=== PATIENT | female | born 1995 | race Caucasian/White ===

== ENCOUNTER 2019-03-27 08:38 | Emergency (ER) | payer BC ==
[~2019-03-27] VITALS: Ht 157.5 cm; Wt 52.2 kg
--- NOTE | 2019-03-27 08:42 | NUR ---
PT BIB SELF C/O RLQ ABDOMINAL PAIN R/T R LOWER BACK, NAUSEA THAT STARTED THIS MORNING, PT IS AAOX4, NOT IN RESPIRATORY DISTRESS ,HOOKED TO MONITOR, KEPT RESTED AND COMFORTABLE, WILL CONTINUE TO MONITOR.
--- NOTE | 2019-03-27 08:52 | NUR ---
PT SEEN AND EXAMINED BY DR. CUEVAS
--- NOTE | 2019-03-27 08:55 | NUR ---
URINE SPECIMEN COLLECTED AND SENT TO LAB.
[2019-03-27] MEDS ORDERED: IV NS 0.9% 1,000 ML BAG IV ONE (09:00)
[2019-03-27] MEDS ORDERED: ONDANSETRON HCL/PF 4 MG/2 ML VIAL IVP ONE (09:00)
[2019-03-27] MEDS ORDERED: KETOROLAC TROMETHAMINE INJ 30 MG/ML VIAL IV ONE (09:00)
--- NOTE | 2019-03-27 09:00 | NUR ---
IV LINE ESTABLISHED, BLOOD DRAWNED AND SENT TO LAB.
[2019-03-27 09:05] LABS: BASOPHILS # (AUTO) 0.1 /CMM (0.0-0.2); EOSINOPHILS % (AUTO) 3.6 % (0.0-6.0); HEMATOCRIT 39 % (33-45); HEMOGLOBIN 13.3 g/dL (11.5-14.8); LYMPHOCYTES # (AUTO) 2.8 /CMM (0.8-4.8); LYMPHOCYTES % (AUTO) 32.2 % (20.0-44.0); MEAN CORPUSCULAR HGB CONC 34 g/dl (31.0-36.0); MEAN CORPUSCULAR VOLUME 98 fL (82-100); MONOCYTES # (AUTO) 0.6 /CMM (0.1-1.30); MONOCYTES % (AUTO) 6.6 % (2.0-12.0); NEUTROPHILS # (AUTO) 4.9 /CMM (1.8-8.9); NEUTROPHILS % (AUTO) 56.6 % (43.0-81.0); PLATELET COUNT (AUTO) 322 /CMM (150-450); RED BLOOD CELL COUNT(AUTO) 3.96 MIL/uL (4.0-5.2); WHITE BLOOD COUNT (AUTO) 8.6 K/uL (4.3-11.0)
--- NOTE | 2019-03-27 09:16 | NUR ---
TECH AT BEDSIDE FOR US.
[2019-03-27] MEDS ORDERED: KETOROLAC TROMETHAMINE 15 MG/ML VIAL ONE (09:22)
[2019-03-27] MEDS ORDERED: ONDANSETRON HCL/PF 4 MG/2 ML VIAL ONE (09:23)
[2019-03-27 09:32] LABS: CALCIUM, SERUM 8.8 mg/dL (8.5-10.1); CREATININE 0.8 mg/dL (0.6-1.3); POTASSIUM 3.7 mmol/L (3.5-5.1)
[2019-03-27 09:37] LABS: ALBUMIN 3.8 g/dL (3.4-5.0); BILIRUBIN,DIRECT 0.1 mg/dL (0.0-0.2); BILIRUBIN,TOTAL 0.3 mg/dL (0.2-1.0); TOTAL PROTEIN, SERUM 7.4 g/dL (6.4-8.2)
[2019-03-27 10:14] LABS: APPEARANCE,URINE Slightly Cloudy (CLEAR); BILIRUBIN,URINE SMALL (NEGATIVE); BLOOD, URINE Moderate Ery/uL (NEGATIVE); COLOR,URINE Yellow (YELLOW); KETONES,URINE Trace (NEGATIVE); LEUKOCYTE ESTERASE ,URINE Negative (NEGATIVE); NITRITE, URINE Negative (NEGATIVE); PROTEIN,URINE Trace mg/dl (NEGATIVE); UGLUCOSE Negative (NEGATIVE); UROBILINOGEN,URINE 0.2 EU/dL (0.2)
[2019-03-27 10:15] LABS: BACTERIA,URINE Few /HPF (None Seen); SQUAMOUS EPITHELIAL CELL,UR Few /HPF (None Seen)
--- NOTE | 2019-03-27 10:46 | NUR ---
IV removed. Catheter intact and site benign. Pressure and 4x4 applied to site. No bleeding noted. Patient discharged to home in stable condition. Written and verbal after care instructions given. Patient verbalizes understanding of instruction.
[2019-03-27 10:47] VITALS: BP 119/64
== END 2019-03-27 10:49 | disposition home or self-care (01) ==
LOC: ER 08:41
DX: N23 Unspecified renal colic (principal); Z87.442 Personal history of urinary calculi
CPT/HCPCS: 36415; 76700; 80048; 80076; 81001; 83690; 84703; 85025; 96374; 96375; 99284; J1885; J2405; J7030; 81000-TC

== ENCOUNTER 2019-05-04 12:08 | Emergency (ER) | payer BC ==
[~2019-05-04] VITALS: Ht 157.5 cm; Wt 44.9 kg
[2019-05-04 12:43] LABS: APPEARANCE,URINE Slightly Cloudy (CLEAR); BILIRUBIN,URINE Negative (NEGATIVE); BLOOD, URINE Small Ery/uL (NEGATIVE); COLOR,URINE Yellow (YELLOW); KETONES,URINE >=160 (NEGATIVE); LEUKOCYTE ESTERASE ,URINE Negative (NEGATIVE); NITRITE, URINE Negative (NEGATIVE); PH,URINE 5.5 (5.0-8.0); PROTEIN,URINE Negative (NEGATIVE); UGLUCOSE Negative (NEGATIVE); UROBILINOGEN,URINE 0.2 EU/dL (0.2)
[2019-05-04 12:52] LABS: BASOPHILS % (AUTO) 0.4 % (0.0-2.0); HEMATOCRIT 42 % (33-45); LYMPHOCYTES # (AUTO) 1.1 /CMM (0.8-4.8); LYMPHOCYTES % (AUTO) 9.8 % (20.0-44.0); MEAN CORPUSCULAR HGB CONC 33 g/dl (31.0-36.0); MEAN CORPUSCULAR VOLUME 100 fL (82-100); MONOCYTES # (AUTO) 0.3 /CMM (0.1-1.30); MONOCYTES % (AUTO) 3.2 % (2.0-12.0); NEUTROPHILS # (AUTO) 9.6 /CMM (1.8-8.9); NEUTROPHILS % (AUTO) 86.6 % (43.0-81.0); PLATELET COUNT (AUTO) 334 /CMM (150-450); WHITE BLOOD COUNT (AUTO) 11.1 K/uL (4.3-11.0)
[2019-05-04] MEDS ORDERED: IV NS 0.9% 1,000 ML BAG IV ONE ×2 (13:00→15:00)
[2019-05-04] MEDS ORDERED: KETOROLAC TROMETHAMINE INJ 30 MG/ML VIAL IV ONE (13:00)
[2019-05-04] MEDS ORDERED: ONDANSETRON HCL/PF 4 MG/2 ML VIAL IVP ONE (13:00)
[2019-05-04] MEDS ORDERED: KETOROLAC TROMETHAMINE 15 MG/ML VIAL ONE (13:07)
[2019-05-04] MEDS ORDERED: ONDANSETRON HCL/PF 4 MG/2 ML VIAL ONE (13:07)
[2019-05-04 13:53] LABS: CREATININE 0.8 mg/dL (0.6-1.3); POTASSIUM 4.7 mmol/L (3.5-5.1)
[2019-05-04 14:00] LABS: ALBUMIN 4.3 g/dL (3.4-5.0); BILIRUBIN,DIRECT 0.1 mg/dL (0.0-0.2); BILIRUBIN,TOTAL 0.4 mg/dL (0.2-1.0)
[2019-05-04 14:45] LABS: BACTERIA,URINE None seen /HPF (None Seen); WBC,URINE 0-2 /HPF (0-3)
[2019-05-04 14:46] LABS: MUCUS,URINE Many /LPF (None Seen); SQUAMOUS EPITHELIAL CELL,UR Many /HPF (None Seen)
[2019-05-04] MEDS ORDERED: ACETAMINOPHEN 325 MG TABLET PO ONE (15:00)
[2019-05-04] MEDS ORDERED: ACETAMINOPHEN ES 500 MG TABLET ONE (15:15)
[2019-05-04 16:02] VITALS: BP 121/67
--- NOTE | 2019-05-04 16:02 | NUR ---
Patient discharged to home in stable condition. Written and verbal after care instructions given. Patient verbalizes understanding of instruction.
== END 2019-05-04 16:03 | disposition home or self-care (01) ==
LOC: ER 12:08
DX: N23 Unspecified renal colic (principal); R11.2 Nausea with vomiting, unspecified
CPT/HCPCS: 36415; 80048; 80076; 81001; 83690; 84703; 85025; 87086; 96361; 96374; 96375; 99283; J1885; J2405; J7030 ×2; 81000-TC

== ENCOUNTER 2019-07-30 22:43 | Emergency (ER) | payer BC ==
[~2019-07-30] VITALS: Ht 157.5 cm; Wt 45.4 kg
[2019-07-30 22:45] VITALS: BP 115/62
--- NOTE | 2019-07-30 22:45 | NUR ---
PT BIBFRIEND C/O "ALCOHOL POISONING, SHE CANT HOLD ANYTHING DOWN". PT AAOX4, VSS. NAD NOTED. RESP EVEN AND UNLABORED. PT DENIES PAIN AT THIS TIME. PT ON MONITOR IN BED 10 WITH FRIEND AT BESIDE. WILL CONTINUE TO MONITOR.
--- NOTE | 2019-07-30 22:59 | NUR ---
BLOOD DRAWN AND GIVEN TO PHLEB
[2019-07-30] MEDS ORDERED: IV NS 0.9% 1,000 ML BAG IV ONE (23:00)
[2019-07-30] MEDS ORDERED: ONDANSETRON HCL/PF 4 MG/2 ML VIAL IVP ONE (23:00)
[2019-07-30] MEDS ORDERED: ONDANSETRON HCL/PF 4 MG/2 ML VIAL ONE (23:04)
[2019-07-30 23:07] LABS: BASOPHILS % (AUTO) 0.3 % (0.0-2.0); HEMATOCRIT 44 % (33-45); HEMOGLOBIN 14.5 g/dL (11.5-14.8); LYMPHOCYTES # (AUTO) 1.1 /CMM (0.8-4.8); LYMPHOCYTES % (AUTO) 6.8 % (20.0-44.0); MEAN CORPUSCULAR HGB CONC 33 g/dl (31.0-36.0); MEAN CORPUSCULAR VOLUME 101 fL (82-100); MONOCYTES # (AUTO) 0.5 /CMM (0.1-1.30); MONOCYTES % (AUTO) 3.3 % (2.0-12.0); NEUTROPHILS # (AUTO) 14.4 /CMM (1.8-8.9); NEUTROPHILS % (AUTO) 89.6 % (43.0-81.0); PLATELET COUNT (AUTO) 370 /CMM (150-450); RED BLOOD CELL COUNT(AUTO) 4.35 MIL/uL (4.0-5.2); WHITE BLOOD COUNT (AUTO) 16.1 K/uL (4.3-11.0)
[2019-07-30 23:28] LABS: BILIRUBIN,DIRECT 0.1 mg/dL (0.0-0.2); BILIRUBIN,TOTAL 0.4 mg/dL (0.2-1.0); CALCIUM, SERUM 9.3 mg/dL (8.5-10.1); CREATININE 0.9 mg/dL (0.6-1.3); POTASSIUM 4.4 mmol/L (3.5-5.1); SALICYLATE 2.4 mg/dL (2.8-20.0); TOTAL PROTEIN, SERUM 8.9 g/dL (6.4-8.2)
--- NOTE | 2019-07-30 23:59 | NUR ---
URINE COLLECTED AND SENT TO LAB
[2019-07-31 00:09] LABS: APPEARANCE,URINE Clear (CLEAR); BILIRUBIN,URINE Negative (NEGATIVE); BLOOD, URINE Trace-lysed Ery/uL (NEGATIVE); COLOR,URINE Yellow (YELLOW); KETONES,URINE 80 (NEGATIVE); LEUKOCYTE ESTERASE ,URINE Negative (NEGATIVE); NITRITE, URINE Negative (NEGATIVE); PH,URINE 5.5 (5.0-8.0); PROTEIN,URINE Negative (NEGATIVE); UGLUCOSE Negative (NEGATIVE); UROBILINOGEN,URINE 0.2 EU/dL (0.2)
--- NOTE | 2019-07-31 00:24 | NUR ---
IV removed. Catheter intact and site benign. Pressure and 4x4 applied to site. No bleeding noted.Patient discharged to home in stable condition. Written and verbal after care instructions given. Patient verbalizes understanding of instruction.
[2019-07-31 00:31] LABS: BACTERIA,URINE Few /HPF (None Seen); SQUAMOUS EPITHELIAL CELL,UR Few /HPF (None Seen); WBC,URINE 0-2 /HPF (0-3)
== END 2019-07-31 00:25 | disposition home or self-care (01) ==
LOC: ER 22:47
DX: F10.20 Alcohol dependence, uncomplicated (principal); Y90.2 Blood alcohol level of 40-59 mg/100 ml; Z87.442 Personal history of urinary calculi
CPT/HCPCS: 36415; 80048; 80076; 80305; 80307; 80329; 81001; 83690; 85025; 96374; 99283; G0480; J2405; 81000-TC

== ENCOUNTER 2019-09-16 10:12 | Emergency (ER) | payer BC ==
[~2019-09-16] VITALS: Ht 165.1 cm; Wt 44.9 kg
--- NOTE | 2019-09-16 10:30 | NUR ---
RUQ ABD PAIN WITH NAUSEA AND VOMITING SINCE LAST NIGHT. PATIENT A/OX4, BREATHING EVEN AND UNLABORED, UNABLE TO PROVIDE UA AT THIS TIME, NOTED TO BE SHAKING, PATIENT ADMITTED TO ALCOHOL ABUSE, LAST DRINK WAS THE OTHER DAY. DR. DENNISON AT BEDSIDE FOR EVAL.
[2019-09-16] MEDS ORDERED: LORAZEPAM INJ 2 MG/ML VIAL ONE (10:43)
[2019-09-16] MEDS ORDERED: KETOROLAC TROMETHAMINE 15 MG/ML VIAL ONE (10:43)
[2019-09-16] MEDS ORDERED: ONDANSETRON HCL/PF 4 MG/2 ML VIAL ONE (10:43)
[2019-09-16 10:50] LABS: BASOPHILS # (AUTO) 0.1 /CMM (0.0-0.2); BASOPHILS % (AUTO) 0.6 % (0.0-2.0); EOSINOPHILS % (AUTO) 1.2 % (0.0-6.0); HEMATOCRIT 44 % (33-45); LYMPHOCYTES # (AUTO) 2.1 /CMM (0.8-4.8); LYMPHOCYTES % (AUTO) 20.8 % (20.0-44.0); MEAN CORPUSCULAR HGB CONC 34 g/dl (31.0-36.0); MEAN CORPUSCULAR VOLUME 98 fL (82-100); MONOCYTES # (AUTO) 0.5 /CMM (0.1-1.30); MONOCYTES % (AUTO) 5.4 % (2.0-12.0); NEUTROPHILS # (AUTO) 7.2 /CMM (1.8-8.9); PLATELET COUNT (AUTO) 363 /CMM (150-450); RED BLOOD CELL COUNT(AUTO) 4.51 MIL/uL (4.0-5.2)
[2019-09-16] MEDS ORDERED: ONDANSETRON HCL/PF 4 MG/2 ML VIAL IVP ONE (11:00)
[2019-09-16] MEDS ORDERED: KETOROLAC TROMETHAMINE INJ 30 MG/ML VIAL IV ONE (11:00)
[2019-09-16] MEDS ORDERED: IV NS 0.9% 1,000 ML BAG IV ONE ×2 (11:00→11:30)
[2019-09-16] MEDS ORDERED: LORAZEPAM INJ 2 MG/ML VIAL IV ONE (11:00)
[2019-09-16 11:02] LABS: ALANINE AMINOTRANSFERASE 16 U/L (12-78); ALBUMIN 4.9 g/dL (3.4-5.0); ALCOHOL, BLOOD < 3 mg/dL (0-0); ALKALINE PHOSPHATASE 64 U/L (46-116); ASPARTATE AMINOTRANSFERASE 17 U/L (15-37); BILIRUBIN,DIRECT 0.4 mg/dL (0.0-0.2); BILIRUBIN,TOTAL 2.2 mg/dL (0.2-1.0); CALCIUM, SERUM 9.8 mg/dL (8.5-10.1); CARBON DIOXIDE 18 mmol/L (21-32); CHLORIDE 99 mmol/L (98-107); CREATININE 0.8 mg/dL (0.6-1.3); GLUCOSE 69 mg/dL (74-106); LIPASE 57 U/L (73-393); POTASSIUM 3.4 mmol/L (3.5-5.1); SODIUM SERUM 139 mmol/L (136-145); TOTAL PROTEIN, SERUM 8.5 g/dL (6.4-8.2); UREA NITROGEN, BLOOD 13 mg/dL (7-18)
[2019-09-16 11:18] LABS: APPEARANCE,URINE Clear (CLEAR); BILIRUBIN,URINE SMALL (NEGATIVE); BLOOD, URINE Moderate Ery/uL (NEGATIVE); COLOR,URINE Yellow (YELLOW); KETONES,URINE >=160 (NEGATIVE); LEUKOCYTE ESTERASE ,URINE Negative (NEGATIVE); NITRITE, URINE Negative (NEGATIVE); PH,URINE 5.5 (5.0-8.0); PROTEIN,URINE 100 mg/dl (NEGATIVE); UGLUCOSE Negative (NEGATIVE); UROBILINOGEN,URINE 0.2 EU/dL (0.2)
[2019-09-16 11:34] LABS: BACTERIA,URINE Few /HPF (None Seen); SQUAMOUS EPITHELIAL CELL,UR Few /HPF (None Seen)
--- NOTE | 2019-09-16 11:43 | NUR ---
PATIENT STATED SHE FEELS BETTER.
[2019-09-16 13:26] VITALS: BP 100/51
--- NOTE | 2019-09-16 13:26 | NUR ---
PATIENT A/OX4, BREATHING EVEN AND UNLABORED, IV removed. Catheter intact and site benign. Pressure and 4x4 applied to site. No bleeding noted.Patient discharged to home in stable condition. Written and verbal after care instructions given. Patient verbalizes understanding of instruction.
== END 2019-09-16 13:27 | disposition home or self-care (01) ==
LOC: ER 10:12
DX: K70.10 Alcoholic hepatitis without ascites (principal); F10.239 Alcohol dependence with withdrawal, unspecified; R11.2 Nausea with vomiting, unspecified; Y90.0 Blood alcohol level of less than 20 mg/100 ml; Z87.442 Personal history of urinary calculi
CPT/HCPCS: 36415; 71045; 74176; 76705; 80048; 80076; 80305; 80307; 81001; 83690; 84702; 84703; 85025; 96361; 96374; 96375; 99285; J1885; J2060; J2405; J7030 ×2; 81000-TC; G0480

== ENCOUNTER 2020-07-23 17:55 | Emergency (ER) | payer BC ==
[~2020-07-23] VITALS: Ht 157.5 cm; Wt 52.2 kg
[2020-07-23] MEDS ORDERED: ONDANSETRON 4 MG TAB.RAPDIS SL ONE (19:00)
[2020-07-23] MEDS ORDERED: ACETAMINOPHEN ES 500 MG TABLET PO ONE (19:00)
[2020-07-23] MEDS ORDERED: HYDROCODONE/APAP 10/325MG TABLET PO ONE (19:00)
[2020-07-23] MEDS ORDERED: ACETAMINOPHEN ES 500 MG TABLET ONE (19:01)
[2020-07-23] MEDS ORDERED: HYDROCODONE/APAP 10/325MG TABLET ONE (19:01)
[2020-07-23] MEDS ORDERED: ONDANSETRON 4 MG TAB.RAPDIS ONE (19:01)
--- NOTE | 2020-07-23 19:07 | NUR ---
BIBS, REMAINED IN TRIAGE. AAOX4. NOT IN RESP DISTRESS. AMBULATORY. CAME IN FOR LOWER ABD PAIN SINCE THIS NOON. 9/10 THROBBING ACHING. PT REPORTS NAUSEA. PROVIDER WAS AT THE BEDSIDE FOR EVAL. ORDERS RECEIVED, NOTED AND CARRIED OUT. MEDICATED ORDERED
[2020-07-23 19:16] LABS: BASOPHILS # (AUTO) 0.2 /CMM (0.0-0.2); BASOPHILS % (AUTO) 1.9 % (0.0-2.0); EOSINOPHILS % (AUTO) 4.3 % (0.0-6.0); HEMATOCRIT 41 % (33-45); HEMOGLOBIN 13.9 g/dL (11.5-14.8); LYMPHOCYTES # (AUTO) 1.9 /CMM (0.8-4.8); LYMPHOCYTES % (AUTO) 14.6 % (20.0-44.0); MEAN CORPUSCULAR HGB CONC 34 g/dl (31.0-36.0); MEAN CORPUSCULAR VOLUME 96 fL (82-100); MONOCYTES # (AUTO) 0.7 /CMM (0.1-1.30); MONOCYTES % (AUTO) 5.1 % (2.0-12.0); NEUTROPHILS # (AUTO) 9.6 /CMM (1.8-8.9); NEUTROPHILS % (AUTO) 74.1 % (43.0-81.0); PLATELET COUNT (AUTO) 370 /CMM (150-450); RED BLOOD CELL COUNT(AUTO) 4.26 MIL/uL (4.0-5.2)
[2020-07-23 19:31] LABS: ALBUMIN 4.5 g/dL (3.4-5.0); BILIRUBIN,DIRECT 0.2 mg/dL (0.0-0.2); BILIRUBIN,TOTAL 0.7 mg/dL (0.2-1.0); CALCIUM, SERUM 9.9 mg/dL (8.5-10.1); CREATININE 0.8 mg/dL (0.6-1.3); POTASSIUM 4.2 mmol/L (3.5-5.1)
--- NOTE | 2020-07-23 19:45 | NUR ---
TOOK OVER PT CARE. PT AAOX4. AMBULATORY WITH STEADY GAIT. BIBSELF C/O "LOWER ABD PAIN +BLADDER PAIN." UPON ASSESSMENT PT STATED "I HAD FIRM SEX AT 12PM TODAY" WHICH IS WHEN THE PT'S PAIN INITIATED. PT PROVIDED URINE SAMPLE. PLACED IN BED 11 ON MONITOR AND PULSE OX. AWAITING OTHER ORDERS. WILL CONTINUE TO MONITOR.
--- NOTE | 2020-07-23 19:48 | NUR ---
URINE SENT TO LAB.
[2020-07-23 19:52] LABS: BILIRUBIN,URINE Negative (NEGATIVE); BLOOD, URINE Negative Ery/uL (NEGATIVE); COLOR,URINE DARK YELLOW (YELLOW); LEUKOCYTE ESTERASE ,URINE Negative (NEGATIVE); NITRITE, URINE Negative (NEGATIVE); PROTEIN,URINE Trace mg/dl (NEGATIVE); UGLUCOSE Negative (NEGATIVE); UROBILINOGEN,URINE 0.2 EU/dL (0.2)
[2020-07-23] MEDS ORDERED: IV NS 0.9% 1,000 ML IV ONE (20:00)
[2020-07-23] MEDS ORDERED: ONDANSETRON HCL/PF 4 MG/2 ML VIAL ONE (20:04)
--- NOTE | 2020-07-23 20:08 | NUR ---
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 ZOFRAN 4MG ORDERED IVP NOW.
[2020-07-23 20:12] LABS: BACTERIA,URINE Rare /HPF (None Seen); RBC,URINE 0-2 /HPF (0-2); WBC,URINE 0-2 /HPF (0-3)
[2020-07-23] MEDS ORDERED: ONDANSETRON HCL/PF 4 MG/2 ML VIAL IV ONE (20:30)
--- NOTE | 2020-07-23 20:30 | NUR ---
IV removed. Catheter intact and site benign. Pressure and 4x4 applied to site. No bleeding noted.
--- NOTE | 2020-07-23 20:32 | NUR ---
JAGUAR GONZALEZ SPEAKING WITH DR CALVILLO [employer]AGE TEACHER
--- NOTE | 2020-07-23 20:34 | NUR ---
Patient discharged to home in stable condition. Written and verbal after care instructions given. Patient verbalizes understanding of instruction and RX. Pt ambulated out of E.D. vss.
[2020-07-23 20:56] VITALS: BP 114/62
== END 2020-07-23 20:56 | disposition home or self-care (01) ==
LOC: ER 18:06
DX: N83.201 Unspecified ovarian cyst, right side (principal); Z87.442 Personal history of urinary calculi
CPT/HCPCS: 76856; 80048; 80076; 81001; 84702; 85025; 85730; 87491; 87591; 96361; 96374; 99284; J2405; J7030; Q0162

== ENCOUNTER 2021-08-10 11:49 | Emergency (ER) | payer BC, OTHER ==
[~2021-08-10] VITALS: Ht 157.5 cm; Wt 49.9 kg
[2021-08-10 12:02] VITALS: BP 110/69
--- NOTE | 2021-08-10 12:05 | NUR ---
BIBS C/O BODYACHES, WEAKNESS, N/V/D, AND LOSS OF SMELL STARTED 6AM TODAY. RESPIRATION REGULAR AND UNLABORED. WILL CONTINUE TO MONITOR THE PATIENT.
--- NOTE | 2021-08-10 12:09 | NUR ---
COVID SWAB DONE AND SENT TO LAB
[2021-08-10] MEDS ORDERED: ONDA4TAB5 PO (12:11)
--- NOTE | 2021-08-10 12:14 | NUR ---
TO CALL FOR COVID RESULTS
--- NOTE | 2021-08-10 12:17 | NUR ---
Patient discharged to home in stable condition. Written and verbal after care instructions given. Patient verbalizes understanding of instruction.
== END 2021-08-10 12:18 | disposition home or self-care (01) ==
LOC: ER 11:51
DX: U07.1 COVID-19 (principal); M79.10 Myalgia, unspecified site; R43.0 Anosmia; R11.2 Nausea with vomiting, unspecified; Z87.442 Personal history of urinary calculi
CPT/HCPCS: 87426; 99283; C9803

== ENCOUNTER 2022-10-13 10:45 | Emergency (ER) | payer OTHER ==
[~2022-10-13] VITALS: Ht 157.5 cm; Wt 49.9 kg
[~2022-10-13 10:45] MED LIST: ONDA4TAB5 PO
--- NOTE | 2022-10-13 10:45 | NUR ---
BIBA FOR LEFT FLANK PAIN. A/O X 3
[2022-10-13] MEDS ORDERED: ACETAMINOPHEN ES 500 MG TABLET PO ONE (11:00)
[2022-10-13] MEDS ORDERED: ONDANSETRON HCL/PF 4 MG/2 ML VIAL IVP ONE (11:00)
[2022-10-13] MEDS ORDERED: IV NS 0.9% 1,000 ML BAG IV ONE (11:00)
[2022-10-13] MEDS ORDERED: KETOROLAC TROMETHAMINE INJ 30 MG/ML VIAL IV ONE (11:00)
--- NOTE | 2022-10-13 11:00 | NUR ---
URINE SAMPLE OBTAINED
[2022-10-13] MEDS ORDERED: ONDANSETRON HCL/PF 4 MG/2 ML VIAL ONE (11:05)
[2022-10-13] MEDS ORDERED: ACETAMINOPHEN ES 500 MG TABLET ONE (11:05)
[2022-10-13] MEDS ORDERED: KETOROLAC TROMETHAMINE 15 MG/ML VIAL ONE (11:05)
--- NOTE | 2022-10-13 11:15 | NUR ---
BLOOD SAMPLES OBTAINED
[2022-10-13 11:27] LABS: BASOPHILS # (AUTO) 0.1 K/uL (0.0-0.2); BASOPHILS % (AUTO) 0.9 % (0.0-2.0); EOSINOPHILS % (AUTO) 10.2 % (0.0-6.0); HEMATOCRIT 40 % (33-45); HEMOGLOBIN 13.4 g/dL (11.5-14.8); LYMPHOCYTES # (AUTO) 2.3 K/uL (0.8-4.8); LYMPHOCYTES % (AUTO) 29.7 % (20.0-44.0); MEAN CORPUSCULAR HGB CONC 33 g/dl (31.0-36.0); MEAN CORPUSCULAR VOLUME 94 fL (82-100); MONOCYTES # (AUTO) 0.6 K/uL (0.1-1.30); MONOCYTES % (AUTO) 7.2 % (2.0-12.0); NEUTROPHILS # (AUTO) 4.1 K/uL (1.8-8.9); PLATELET COUNT (AUTO) 369 K/uL (150-450); RED BLOOD CELL COUNT(AUTO) 4.31 MIL/uL (4.0-5.2); WHITE BLOOD COUNT (AUTO) 7.8 K/uL (4.3-11.0)
[2022-10-13 11:36] LABS: ALBUMIN 4.4 g/dL (3.4-5.0); BILIRUBIN,DIRECT 0.2 mg/dL (0.0-0.2); BILIRUBIN,TOTAL 0.6 mg/dL (0.2-1.0); CREATININE 0.8 mg/dL (0.6-1.3); POTASSIUM 3.9 mmol/L (3.5-5.1); TOTAL PROTEIN, SERUM 7.6 g/dL (6.4-8.2)
[2022-10-13 11:44] LABS: BILIRUBIN,URINE NEGATIVE (NEGATIVE); COLOR,URINE YELLOW (YELLOW); LEUKOCYTE ESTERASE ,URINE NEGATIVE (NEGATIVE); NITRITE, URINE NEGATIVE (NEGATIVE); PH,URINE 6.5 (5.0-8.0); PROTEIN,URINE NEGATIVE (NEGATIVE); UGLUCOSE NEGATIVE (NEGATIVE); UROBILINOGEN,URINE 0.2 EU/dL (0.2)
[2022-10-13] MEDS ORDERED: MORPHINE SULFATE INJ 2 MG/ML DISP.SYRIN IV ONE (13:00)
--- NOTE | 2022-10-13 13:07 | NUR ---
PT TAKEN TO CT BY ENZO ROQUE
--- NOTE | 2022-10-13 13:24 | NUR ---
Mei choudhury in [facility] - 10/13/22 at 1325 by ALFREDO PATIENT WENT TO CT
[2022-10-13] MEDS ORDERED: IBUP-1955 PO (13:25)
[2022-10-13] MEDS ORDERED: PHEN-704 PO (13:25)
[2022-10-13] MEDS ORDERED: MORPHINE SULFATE INJ 2 MG/ML DISP.SYRIN ONE (13:27)
[2022-10-13] MEDS ORDERED: ONDA4TAB5 PO (13:50)
[2022-10-13 14:15] VITALS: BP 122/71
== END 2022-10-13 14:16 | disposition home or self-care (01) ==
LOC: ER 10:49
DX: R10.9 Unspecified abdominal pain (principal); R11.2 Nausea with vomiting, unspecified; R30.0 Dysuria; Z60.2 Problems related to living alone; Z79.899 Other long term (current) drug therapy
CPT/HCPCS: 99285; 74176; 96374; 76856; 96375; 96361; 85025; 80048; 83690; 80076; 84703; 81003; 36415; J2405; J7030; J2270; J1885

== ENCOUNTER 2022-11-08 07:28 | Emergency (ER) | payer OTHER ==
[~2022-11-08] VITALS: Ht 157.5 cm; Wt 52.2 kg
[~2022-11-08 07:28] MED LIST changes: +IBUP-1955 PO; +PHEN-704 PO
--- NOTE | 2022-11-08 07:50 | NUR ---
RECEIVED PT 27 YRS FEMALE CAME FROM HOME C/O ABDOMINAL PAIN FOR ONE DAYS HX KIDNEY ston UA SENT BY TRIAGE NURSE
--- NOTE | 2022-11-08 08:00 | NUR ---
SEEN BY MEDICALE STUDENT
[2022-11-08] MEDS ORDERED: ONDANSETRON HCL/PF 4 MG/2 ML VIAL ONE (08:29)
[2022-11-08] MEDS ORDERED: IV NS 0.9% 1,000 ML IV ONE (08:30)
[2022-11-08] MEDS ORDERED: MORPHINE SULFATE INJ 2 MG/ML DISP.SYRIN ONE ×2 (08:30→10:39)
[2022-11-08] MEDS ORDERED: ONDANSETRON HCL/PF - ER 4 MG/2 ML VIAL IV ONE (08:30)
[2022-11-08] MEDS ORDERED: MORPHINE SULFATE INJ 2 MG/ML DISP.SYRIN IV ONE ×2 (08:30→10:30)
[2022-11-08 08:39] LABS: BASOPHILS # (AUTO) 0.1 K/uL (0.0-0.2); BASOPHILS % (AUTO) 1.3 % (0.0-2.0); EOSINOPHILS % (AUTO) 7.3 % (0.0-6.0); HEMATOCRIT 38 % (33-45); HEMOGLOBIN 12.9 g/dL (11.5-14.8); LYMPHOCYTES # (AUTO) 2.3 K/uL (0.8-4.8); LYMPHOCYTES % (AUTO) 37.7 % (20.0-44.0); MEAN CORPUSCULAR HGB CONC 34 g/dl (31.0-36.0); MEAN CORPUSCULAR VOLUME 95 fL (82-100); MONOCYTES # (AUTO) 0.4 K/uL (0.1-1.30); MONOCYTES % (AUTO) 6.8 % (2.0-12.0); NEUTROPHILS # (AUTO) 2.9 K/uL (1.8-8.9); NEUTROPHILS % (AUTO) 46.9 % (43.0-81.0); PLATELET COUNT (AUTO) 317 K/uL (150-450); RED BLOOD CELL COUNT(AUTO) 4.03 MIL/uL (4.0-5.2); WHITE BLOOD COUNT (AUTO) 6.1 K/uL (4.3-11.0)
[2022-11-08 08:50] LABS: CALCIUM, SERUM 8.9 mg/dL (8.5-10.1); CREATININE 0.6 mg/dL (0.6-1.3); POTASSIUM 4.9 mmol/L (3.5-5.1)
--- NOTE | 2022-11-08 08:50 | NUR ---
inserted ango catheter g 20 on LT AC IVF NS 0.9 % INFUSED AND PATENT
--- NOTE | 2022-11-08 09:20 | NUR ---
PELVIC VAGNALE EXMA DONE AT BED SIDE
--- NOTE | 2022-11-08 10:50 | NUR ---
C/O ABDMINALE PAIN 03/15 MROPHIN 2 MG SLOW IVP GIVEN
[2022-11-08 11:11] LABS: BILIRUBIN,URINE NEGATIVE (NEGATIVE); COLOR,URINE YELLOW (YELLOW); PH,URINE 5.5 (5.0-8.0); PROTEIN,URINE NEGATIVE (NEGATIVE); UGLUCOSE NEGATIVE (NEGATIVE)
[2022-11-08 11:12] LABS: LEUKOCYTE ESTERASE ,URINE TRACE (NEGATIVE); NITRITE, URINE NEGATIVE (NEGATIVE); UROBILINOGEN,URINE 0.2 EU/dL (0.2)
[2022-11-08 11:44] LABS: RBC,URINE 0-2 /HPF (0-2); WBC,URINE 0-2 /HPF (0-3)
[2022-11-08 11:45] LABS: BACTERIA,URINE Moderate /HPF (None Seen); SQUAMOUS EPITHELIAL CELL,UR Many /HPF (None Seen)
[2022-11-08] MEDS ORDERED: CEPH500C2 PO (13:13)
[2022-11-08] MEDS ORDERED: OXYC-128 PO (13:13)
[2022-11-08] MEDS ORDERED: IBUP-1957 PO (13:13)
--- NOTE | 2022-11-08 13:25 | NUR ---
C/O ABDOMIALE PAIN 02/12 DR. QUINONES NOTEFED ORDER TORDOLE 15 MG IVP GIVEN
[2022-11-08] MEDS ORDERED: KETOROLAC TROMETHAMINE INJ 30 MG/ML VIAL IV ONE (13:30)
[2022-11-08] MEDS ORDERED: KETOROLAC TROMETHAMINE 15 MG/ML VIAL ONE (13:31)
--- NOTE | 2022-11-08 14:05 | NUR ---
IV removed. Catheter intact and site benign. Pressure and 4x4 applied to site. No bleeding noted.
[2022-11-08 14:12] VITALS: BP 111/72
== END 2022-11-08 14:14 | disposition home or self-care (01) ==
LOC: ER 07:34
DX: N20.0 Calculus of kidney (principal); R10.32 Left lower quadrant pain; R30.0 Dysuria; Z79.899 Other long term (current) drug therapy; Z60.2 Problems related to living alone
CPT/HCPCS: 99285; 74176; 96374; 76856; 96375; 96361; 96376; 85025; 80048; 87086; 84703; 81001; 36415; J2405 ×2; J7030; J2270 ×2; J1885

== ENCOUNTER 2022-12-06 23:11 | Emergency (ER) | payer OTHER ==
[~2022-12-06] VITALS: Ht 157.5 cm; Wt 52.2 kg
[~2022-12-06 23:11] MED LIST changes: +CEPH500C2 PO; +IBUP-1957 PO; +OXYC-128 PO
--- NOTE | 2022-12-07 00:33 | NUR ---
0033 BIBS FOR RED-COLORED URINE IN AM, HX OF KIDNEY STONES PAIN 8/10 WHEN URINATING
[2022-12-07] MEDS ORDERED: KETOROLAC TROMETHAMINE INJ 30 MG/ML VIAL ONE (00:43)
[2022-12-07] MEDS ORDERED: ONDANSETRON HCL/PF 4 MG/2 ML VIAL ONE (00:43)
--- NOTE | 2022-12-07 00:50 | NUR ---
URINE COLLECTED SENT TO LAB
--- NOTE | 2022-12-07 00:56 | NUR ---
BLOOD COLLECTED AND SENT TO LAB
[2022-12-07] MEDS ORDERED: KETOROLAC TROMETHAMINE INJ 30 MG/ML VIAL IV ONE (01:00)
[2022-12-07] MEDS ORDERED: IV NS 0.9% 1,000 ML BAG IV ONE (01:00)
[2022-12-07] MEDS ORDERED: ONDANSETRON HCL/PF 4 MG/2 ML VIAL IVP ONE (01:00)
--- NOTE | 2022-12-07 01:04 | NUR ---
PT TAKEN TO CT
[2022-12-07 01:07] LABS: BILIRUBIN,URINE NEGATIVE (NEGATIVE); COLOR,URINE YELLOW (YELLOW); LEUKOCYTE ESTERASE ,URINE 1+ (NEGATIVE); NITRITE, URINE NEGATIVE (NEGATIVE); PROTEIN,URINE NEGATIVE (NEGATIVE); UGLUCOSE NEGATIVE (NEGATIVE); UROBILINOGEN,URINE 0.2 EU/dL (0.2)
[2022-12-07 01:10] LABS: BASOPHILS # (AUTO) 0.1 K/uL (0.0-0.2); BASOPHILS % (AUTO) 0.9 % (0.0-2.0); EOSINOPHILS % (AUTO) 3.1 % (0.0-6.0); HEMATOCRIT 45 % (33-45); HEMOGLOBIN 14.9 g/dL (11.5-14.8); LYMPHOCYTES # (AUTO) 3.6 K/uL (0.8-4.8); LYMPHOCYTES % (AUTO) 35.4 % (20.0-44.0); MEAN CORPUSCULAR HGB CONC 33 g/dl (31.0-36.0); MEAN CORPUSCULAR VOLUME 96 fL (82-100); MONOCYTES # (AUTO) 0.6 K/uL (0.1-1.30); MONOCYTES % (AUTO) 6.3 % (2.0-12.0); NEUTROPHILS # (AUTO) 5.5 K/uL (1.8-8.9); NEUTROPHILS % (AUTO) 54.3 % (43.0-81.0); PLATELET COUNT (AUTO) 382 K/uL (150-450); RED BLOOD CELL COUNT(AUTO) 4.68 MIL/uL (4.0-5.2)
[2022-12-07 01:12] LABS: BACTERIA,URINE Few /HPF (None Seen); SQUAMOUS EPITHELIAL CELL,UR Rare /HPF (None Seen)
--- NOTE | 2022-12-07 01:13 | NUR ---
PT BACK FROM CT
[2022-12-07 01:24] LABS: CALCIUM, SERUM 9.8 mg/dL (8.5-10.1); CREATININE 0.7 mg/dL (0.6-1.3); POTASSIUM 3.9 mmol/L (3.5-5.1)
[2022-12-07 01:36] LABS: ALBUMIN 5.1 g/dL (3.4-5.0); BILIRUBIN,DIRECT 0.2 mg/dL (0.0-0.2); BILIRUBIN,TOTAL 0.8 mg/dL (0.2-1.0); TOTAL PROTEIN, SERUM 8.7 g/dL (6.4-8.2)
[2022-12-07] MEDS ORDERED: IBUP-1957 PO (03:01)
[2022-12-07] MEDS ORDERED: ONDA4TAB5 PO (03:01)
[2022-12-07] MEDS ORDERED: PHEN-705 PO (03:01)
[2022-12-07] MEDS ORDERED: NITR100C6 PO (03:01)
[2022-12-07] MEDS ORDERED: NITROFURANTOIN/MONOHYDRATE MACROCRYSTALS 100 MG CAPSULE ONE (03:05)
[2022-12-07] MEDS ORDERED: PHENAZOPYRIDINE HCL 200 MG TABLET ONE (03:07)
[2022-12-07 03:19] VITALS: BP 135/66
[2022-12-07] MEDS ORDERED: PHENAZOPYRIDINE HCL 200 MG TABLET PO ONE (03:30)
[2022-12-07] MEDS ORDERED: NITROFURANTOIN/MONOHYDRATE MACROCRYSTALS 100 MG CAPSULE PO ONE (03:30)
== END 2022-12-07 03:21 | disposition home or self-care (01) ==
LOC: ER 23:23
DX: N39.0 Urinary tract infection, site not specified (principal); N23 Unspecified renal colic; N83.202 Unspecified ovarian cyst, left side; N83.201 Unspecified ovarian cyst, right side; Z87.442 Personal history of urinary calculi; F32.A Depression, unspecified; Z60.2 Problems related to living alone; Z79.899 Other long term (current) drug therapy
CPT/HCPCS: 99285; 74176; 96374; 96361; 96375; 85025; 80048; 87086; 83690; 80076; 84703; 81001; 36415; 85730; J1885; J2405; J7030

== ENCOUNTER 2023-03-22 14:10 | Emergency (ER) | payer OTHER ==
[~2023-03-22] VITALS: Ht 157.5 cm; Wt 49.9 kg
[~2023-03-22 14:10] MED LIST changes: +NITR100C6 PO; +PHEN-705 PO
[2023-03-22] MEDS ORDERED: AMOX-430 PO (15:56)
[2023-03-22] MEDS ORDERED: ACETAMINOPHEN ES 500 MG TABLET PO ONE (16:00)
[2023-03-22] MEDS ORDERED: TDAP [DIPH/PERTUSSIS/TET] 0.5 ML VIAL IM ONE ×2 (16:00→16:06)
[2023-03-22] MEDS ORDERED: ONDANSETRON 4 MG TAB.RAPDIS SL ONE (16:00)
[2023-03-22] MEDS ORDERED: BACITRACIN ZINC OINT PACKET 1 EA PACKET TP ONE ×2 (16:00→16:07)
[2023-03-22] MEDS ORDERED: ACETAMINOPHEN ES 500 MG TABLET ONE (16:05)
[2023-03-22] MEDS ORDERED: ONDANSETRON 4 MG TAB.RAPDIS ONE (16:06)
[2023-03-22 16:25] VITALS: BP 128/87; TEMP 98.4; O2SAT 100
== END 2023-03-22 16:25 | disposition home or self-care (01) ==
LOC: ER 14:13
DX: S71.152A Open bite, left thigh, initial encounter (principal); F32.A Depression, unspecified; Z60.2 Problems related to living alone; W54.0XXA Bitten by dog, initial encounter; Y93.89 Activity, other specified; Y92.89 Other specified places as the place of occurrence of the external cause; Y99.8 Other external cause status
CPT/HCPCS: 99283; 90471; 90715; Q0162

== ENCOUNTER 2024-03-14 02:22 | Inpatient (IN) | payer OTHER ==
[~2024-03-14] VITALS: Ht 154.9 cm; Wt 55.8 kg
[~2024-03-14 02:22] MED LIST changes: +AMOX-430 PO
[2024-03-14] MEDS ORDERED: MORPHINE SULFATE INJ 2 MG/ML DISP.SYRIN ONE ×2 (02:43→05:22)
[2024-03-14] MEDS ORDERED: ONDANSETRON HCL/PF 4 MG/2 ML VIAL ONE ×2 (02:43→05:21)
[2024-03-14] MEDS: IV NS 0.9% 1,000 ML BAG IV ONE ×2 (02:54→06:39)
[2024-03-14] MEDS: MORPHINE SULFATE INJ 2 MG/ML DISP.SYRIN IV ONE ×2 (02:55→05:27)
[2024-03-14] MEDS: ONDANSETRON HCL/PF 4 MG/2 ML VIAL IVP ONE (02:55)
[2024-03-14 03:01] LABS: BASOPHILS % (AUTO) 0.2 % (0.0-2.0); EOSINOPHILS # (AUTO) 0.2 K/uL (0.0-0.7); EOSINOPHILS % (AUTO) 1.2 % (0.0-6.0); HEMATOCRIT 39 % (33-45); HEMOGLOBIN 13.3 g/dL (11.5-14.8); LYMPHOCYTES # (AUTO) 1.1 K/uL (0.8-4.8); LYMPHOCYTES % (AUTO) 7.8 % (20.0-44.0); MEAN CORPUSCULAR HEMOGLOBIN 32 PG (26.0-33.0); MEAN CORPUSCULAR HGB CONC 34 g/dl (31.0-36.0); MEAN CORPUSCULAR VOLUME 94 fL (82-100); MONOCYTES # (AUTO) 0.6 K/uL (0.1-1.30); NEUTROPHILS # (AUTO) 12.2 K/uL (1.8-8.9); NEUTROPHILS % (AUTO) 86.8 % (43.0-81.0); PLATELET COUNT (AUTO) 367 K/uL (150-450); RED BLOOD CELL COUNT(AUTO) 4.17 MIL/uL (4.0-5.2); RED CELL DISTRIBUTION WIDTH 13.2 % (11.5-15.0); WHITE BLOOD COUNT (AUTO) 14.1 K/uL (4.3-11.0)
[2024-03-14 03:14] LABS: INR 0.98 (0.91-1.10); PARTIAL THROMBOPLASTIN TIME 27.3 SEC (24.3-34.3); PROTHROMBIN TIME 10.4 SECS (9.2-11.1)
[2024-03-14 03:16] LABS: CALCIUM, SERUM 8.5 mg/dL (8.5-10.1); CREATININE 0.8 mg/dL (0.6-1.3); POTASSIUM 3.8 mmol/L (3.5-5.1)
[2024-03-14 03:21] LABS: ALBUMIN 3.7 g/dL (3.4-5.0); BILIRUBIN,DIRECT 0.1 mg/dL (0.0-0.2); BILIRUBIN,TOTAL 0.6 mg/dL (0.2-1.0); TOTAL PROTEIN, SERUM 7.4 g/dL (6.4-8.2)
[2024-03-14 03:54] LABS: APPEARANCE,URINE CLEAR (CLEAR); BILIRUBIN,URINE NEGATIVE (NEGATIVE); BLOOD, URINE TRACE-INTA Ery/uL (NEGATIVE); COLOR,URINE YELLOW (YELLOW); KETONES,URINE NEGATIVE (NEGATIVE); LEUKOCYTE ESTERASE ,URINE NEGATIVE (NEGATIVE); NITRITE, URINE NEGATIVE (NEGATIVE); PROTEIN,URINE NEGATIVE (NEGATIVE); UGLUCOSE NEGATIVE (NEGATIVE); UROBILINOGEN,URINE 0.2 EU/dL (0.2)
[2024-03-14 04:29] LABS: WBC,URINE 0-2 /HPF (0-3)
[2024-03-14 04:30] LABS: ADD URINE CULTURE NO; BACTERIA,URINE Few /HPF (None Seen); TRICHOMONAS,URINE None Seen /HPF (None Seen); YEAST,URINE Rare /HPF (None Seen)
[2024-03-14 04:31] LABS: WAXY CASTS,URINE Rare /LPF (None Seen)
[2024-03-14] MEDS: ONDANSETRON HCL/PF 4 MG/2 ML VIAL IV ONE (05:27)
[2024-03-14] MEDS ORDERED: METRONIDAZOLE 500MG/ NS 100ML 100 ML IV ONE (05:58)
[2024-03-14] MEDS ORDERED: CIPROFLOXACIN IV RTU 200 ML IV ONE (05:58)
[2024-03-14] MEDS: FLAGYL/NS RTU 500 MG/100 ML PIGGYBACK IV ONE (06:05)
[2024-03-14] MEDS: CIPROFLOXACIN IV RTU 400 MG in PREMIX 1 EA IV SCH (06:05)
[2024-03-14] MEDS ORDERED: diphenhydrAMINE HCL 50 MG/ML VIAL ONE (06:33)
[2024-03-14] MEDS ORDERED: METOCLOPRAMIDE HCL 10 MG/2 ML VIAL ONE (06:33)
[2024-03-14] MEDS: diphenhydrAMINE HCL 50 MG/ML VIAL IV ONE (06:39)
[2024-03-14] MEDS: METOCLOPRAMIDE HCL 10 MG/2 ML VIAL IV ONE (06:39)
[2024-03-14] MEDS ORDERED: MAGNESIUM HYDROXIDE 30 ML UDC PO PRN (07:00)
[2024-03-14] MEDS ORDERED: Z GUARD REMEDY 4 OZ OINT TP PRN (07:00)
[2024-03-14] MEDS ORDERED: MAG HYDROX/AL HYDROX/SIMETH 30 ML UDC PO PRN (07:00)
[2024-03-14] MEDS ORDERED: ZOLPIDEM TARTRATE 5 MG TABLET PO PRN (07:00)
[2024-03-14] MEDS ORDERED: ACETAMINOPHEN 325 MG TABLET PO PRN (07:00)
[2024-03-14 08:00] VITALS: BP 91/51; TEMP 98.4; O2SAT 99
[2024-03-14] MEDS: PANTOPRAZOLE 40 MG TABLET.DR PO SCH (09:01)
[2024-03-14] MEDS: IV NS 0.9% 1,000 ML IV ONE ×2 (09:02→14:33)
[2024-03-14] MEDS: IV NS 0.9% 1,000 ML BAG IV SCH (09:03)
[2024-03-14] MEDS: ONDANSETRON HCL/PF 4 MG/2 ML VIAL IVP PRN (09:03)
[2024-03-14 11:24] VITALS: BP 91/51; TEMP 98.4; O2SAT 99
[2024-03-14] MEDS: DICYCLOMINE HCL 10 MG CAPSULE PO SCH (12:31)
[2024-03-14] MEDS: METRONIDAZOLE 500MG/ NS 100ML 500 MG in PREMIX 1 EA IV SCH (12:32)
[2024-03-14 12:53] LABS: BASOPHILS % (AUTO) 0.5 % (0.0-2.0); EOSINOPHILS % (AUTO) 0.3 % (0.0-6.0); HEMATOCRIT 34 % (33-45); HEMOGLOBIN 11.7 g/dL (11.5-14.8); LYMPHOCYTES # (AUTO) 0.8 K/uL (0.8-4.8); MEAN CORPUSCULAR HEMOGLOBIN 32 PG (26.0-33.0); MEAN CORPUSCULAR HGB CONC 34 g/dl (31.0-36.0); MEAN CORPUSCULAR VOLUME 94 fL (82-100); MONOCYTES # (AUTO) 0.2 K/uL (0.1-1.30); MONOCYTES % (AUTO) 2.6 % (2.0-12.0); NEUTROPHILS % (AUTO) 87.6 % (43.0-81.0); PLATELET COUNT (AUTO) 289 K/uL (150-450); RED BLOOD CELL COUNT(AUTO) 3.65 MIL/uL (4.0-5.2); RED CELL DISTRIBUTION WIDTH 12.9 % (11.5-15.0); WHITE BLOOD COUNT (AUTO) 9.2 K/uL (4.3-11.0)
[2024-03-14 13:20] LABS: ALBUMIN 2.8 g/dL (3.4-5.0); BILIRUBIN,DIRECT 0.2 mg/dL (0.0-0.2); BILIRUBIN,TOTAL 0.8 mg/dL (0.2-1.0); CALCIUM, SERUM 7.2 mg/dL (8.5-10.1); CREATININE 0.7 mg/dL (0.6-1.3); MAGNESIUM 1.7 mg/dL (1.8-2.4); POTASSIUM 3.3 mmol/L (3.5-5.1); TOTAL PROTEIN, SERUM 5.9 g/dL (6.4-8.2)
[2024-03-14 13:55] LABS: THYROID STIMULATING HORMONE 1.64 uIU/mL (0.358-3.74)
[2024-03-14 14:25] VITALS: BP 91/51; TEMP 98.4; O2SAT 99
[2024-03-14 16:00] VITALS: BP 91/55; TEMP 99.1; O2SAT 100
[2024-03-14] MEDS: POTASSIUM CHLORIDE 20 MEQ TAB.PRT.SR PO ONE (16:23)
[2024-03-14] MEDS ORDERED: CIPROFLOXACIN IV RTU 400 MG in PREMIX 1 EA IV SCH (17:00)
[2024-03-14] MEDS: CIPROFLOXACIN HCL 500 MG TABLET PO SCH (17:02)
[2024-03-17] MEDS ORDERED: ONDA4TAB5 PO (11:02)
[2024-03-17] MEDS ORDERED: CIPR500T5 PO (11:02)
[2024-03-17] MEDS ORDERED: ALPR0.25 PO (11:41)
== END 2024-03-14 18:42 | disposition home or self-care (01) | DRG 249 ==
LOC: ER 02:25 → MEDSG1 06:32
PROVIDERS: ADMIT Internal Medicine; ATTEND Internal Medicine
DX: A09 Infectious gastroenteritis and colitis, unspecified (principal); F32.A Depression, unspecified; N20.0 Calculus of kidney; N80.9 Endometriosis, unspecified; Z87.442 Personal history of urinary calculi; F90.9 Attention-deficit hyperactivity disorder, unspecified type; Z79.899 Other long term (current) drug therapy
CPT/HCPCS: 36415; 76856-TC; 80048-TC; 80076-TC; 81001; 83690-TC; 83735-TC; 84100-TC; 84443-TC; 84703-TC; 85025-TC; 85730-TC; A4216; A4223; G0378; J0744; J1200; J2270; J2405; J2765; J7030

== ENCOUNTER 2024-03-15 07:37 | Inpatient (IN) | payer OTHER ==
[~2024-03-15] VITALS: Ht 157.5 cm; Wt 52.2 kg
[2024-03-15] MEDS: ONDANSETRON HCL/PF 4 MG/2 ML VIAL IVP ONE (08:00)
[2024-03-15] MEDS: IV NS 0.9% 1,000 ML BAG IV ONE (08:00)
[2024-03-15] MEDS ORDERED: ONDANSETRON HCL/PF 4 MG/2 ML VIAL ONE ×2 (08:07→09:21)
[2024-03-15 08:12] LABS: BASOPHILS % (AUTO) 0.5 % (0.0-2.0); EOSINOPHILS # (AUTO) 0.2 K/uL (0.0-0.7); EOSINOPHILS % (AUTO) 3.3 % (0.0-6.0); HEMATOCRIT 36 % (33-45); LYMPHOCYTES % (AUTO) 20.8 % (20.0-44.0); MEAN CORPUSCULAR HEMOGLOBIN 32 PG (26.0-33.0); MEAN CORPUSCULAR HGB CONC 34 g/dl (31.0-36.0); MEAN CORPUSCULAR VOLUME 95 fL (82-100); MONOCYTES # (AUTO) 0.6 K/uL (0.1-1.30); MONOCYTES % (AUTO) 11.2 % (2.0-12.0); NEUTROPHILS # (AUTO) 3.2 K/uL (1.8-8.9); NEUTROPHILS % (AUTO) 64.2 % (43.0-81.0); PLATELET COUNT (AUTO) 337 K/uL (150-450); RED BLOOD CELL COUNT(AUTO) 3.75 MIL/uL (4.0-5.2)
[2024-03-15 08:22] LABS: CALCIUM, SERUM 8.4 mg/dL (8.5-10.1); CREATININE 0.8 mg/dL (0.6-1.3); POTASSIUM 3.7 mmol/L (3.5-5.1)
[2024-03-15 08:28] LABS: ALBUMIN 3.4 g/dL (3.4-5.0); BILIRUBIN,DIRECT 0.1 mg/dL (0.0-0.2); BILIRUBIN,TOTAL 0.4 mg/dL (0.2-1.0); TOTAL PROTEIN, SERUM 7.1 g/dL (6.4-8.2)
[2024-03-15 09:00] VITALS: BP 109/57; TEMP 98.6; O2SAT 96
[2024-03-15] MEDS: ONDANSETRON HCL/PF 4 MG/2 ML VIAL IV STA (09:23)
[2024-03-15 09:27] LABS: PREGNANCY TEST URINE QUAL NEGATIVE (NEGATIVE)
[2024-03-15] MEDS: IV NS 0.9% 1,000 ML IV PRN (11:30)
[2024-03-15] MEDS ORDERED: CIPROFLOXACIN IV RTU 400 MG in PREMIX 1 EA IV SCH (11:30)
[2024-03-15] MEDS: MORPHINE SULFATE INJ 2 MG/ML DISP.SYRIN IV PRN (11:31)
[2024-03-15] MEDS: PANTOPRAZOLE 40 MG VIAL IV SCH (11:49)
[2024-03-15] MEDS: LEVOFLOXACIN 500 MG /D5W 100ML 500 MG in PREMIX 1 EA IV SCH (14:04)
[2024-03-15] MEDS: ONDANSETRON HCL/PF 4 MG/2 ML VIAL IVP PRN (15:39)
[2024-03-15 20:00] VITALS: BP 113/47; TEMP 98.1; O2SAT 100; O2SAT 95
[2024-03-15] MEDS: ACETAMINOPHEN 325 MG TABLET PO PRN (23:52)
[2024-03-16 06:40] LABS: BASOPHILS % (AUTO) 0.5 % (0.0-2.0); EOSINOPHILS # (AUTO) 0.2 K/uL (0.0-0.7); EOSINOPHILS % (AUTO) 2.4 % (0.0-6.0); HEMATOCRIT 32 % (33-45); HEMOGLOBIN 10.8 g/dL (11.5-14.8); LYMPHOCYTES # (AUTO) 2.4 K/uL (0.8-4.8); LYMPHOCYTES % (AUTO) 33.9 % (20.0-44.0); MEAN CORPUSCULAR HEMOGLOBIN 32 PG (26.0-33.0); MEAN CORPUSCULAR HGB CONC 34 g/dl (31.0-36.0); MEAN CORPUSCULAR VOLUME 95 fL (82-100); MONOCYTES # (AUTO) 0.6 K/uL (0.1-1.30); MONOCYTES % (AUTO) 8.2 % (2.0-12.0); NEUTROPHILS # (AUTO) 3.9 K/uL (1.8-8.9); PLATELET COUNT (AUTO) 262 K/uL (150-450); RED BLOOD CELL COUNT(AUTO) 3.32 MIL/uL (4.0-5.2); RED CELL DISTRIBUTION WIDTH 12.9 % (11.5-15.0)
[2024-03-16 07:07] LABS: CALCIUM, SERUM 8.3 mg/dL (8.5-10.1); CREATININE 0.7 mg/dL (0.6-1.3); MAGNESIUM 1.7 mg/dL (1.8-2.4); PHOSPHORUS 3.4 mg/dL (2.5-4.9); POTASSIUM 3.5 mmol/L (3.5-5.1)
[2024-03-16 07:30] VITALS: BP 115/70; TEMP 98.2; O2SAT 92
[2024-03-16] MEDS: Magnesium 1GM/D5W 100ML PREMIX 100 ML IV SCH (10:17)
[2024-03-16] MEDS ORDERED: ONDANSETRON HCL/PF 4 MG/2 ML VIAL IVP PRN (11:30)
[2024-03-16] MEDS: diphenhydrAMINE HCL 50 MG/ML VIAL IV SCH (11:32)
[2024-03-16 16:00] VITALS: BP 131/89; TEMP 97.9; O2SAT 93
[2024-03-16 20:00] VITALS: BP 133/80; TEMP 98.2; O2SAT 100
[2024-03-16 20:15] VITALS: BP 133/80; TEMP 98.2; O2SAT 100
[2024-03-17] MEDS: LORAZEPAM 0.5 MG TABLET PO PRN (04:43)
[2024-03-17 06:24] LABS: BASOPHILS % (AUTO) 0.3 % (0.0-2.0); EOSINOPHILS # (AUTO) 0.3 K/uL (0.0-0.7); EOSINOPHILS % (AUTO) 2.4 % (0.0-6.0); HEMATOCRIT 31 % (33-45); HEMOGLOBIN 10.6 g/dL (11.5-14.8); LYMPHOCYTES # (AUTO) 1.8 K/uL (0.8-4.8); LYMPHOCYTES % (AUTO) 17.1 % (20.0-44.0); MEAN CORPUSCULAR HEMOGLOBIN 33 PG (26.0-33.0); MEAN CORPUSCULAR HGB CONC 35 g/dl (31.0-36.0); MEAN CORPUSCULAR VOLUME 94 fL (82-100); MONOCYTES # (AUTO) 0.7 K/uL (0.1-1.30); MONOCYTES % (AUTO) 6.6 % (2.0-12.0); NEUTROPHILS # (AUTO) 7.8 K/uL (1.8-8.9); NEUTROPHILS % (AUTO) 73.6 % (43.0-81.0); PLATELET COUNT (AUTO) 279 K/uL (150-450); RED BLOOD CELL COUNT(AUTO) 3.27 MIL/uL (4.0-5.2); RED CELL DISTRIBUTION WIDTH 12.4 % (11.5-15.0); WHITE BLOOD COUNT (AUTO) 10.6 K/uL (4.3-11.0)
[2024-03-17 06:48] LABS: CALCIUM, SERUM 8.3 mg/dL (8.5-10.1); CREATININE 0.6 mg/dL (0.6-1.3); MAGNESIUM 1.8 mg/dL (1.8-2.4); PHOSPHORUS 3.6 mg/dL (2.5-4.9); POTASSIUM 4.1 mmol/L (3.5-5.1)
[2024-03-17 08:00] VITALS: BP 132/84; TEMP 98.8; O2SAT 97
[2024-03-17] MEDS ORDERED: ONDA4TAB5 PO (11:02)
[2024-03-17] MEDS ORDERED: CIPR500T5 PO (11:02)
[2024-03-17] MEDS ORDERED: ALPR0.25 PO (11:41)
[2024-03-18] MEDS ORDERED: PANTOPRAZOLE 40 MG TABLET.DR PO SCH (07:30)
== END 2024-03-17 15:00 | disposition home or self-care (01) | DRG 248 ==
LOC: ER 07:39 → MED 08:57
PROVIDERS: ADMIT Nurse Practitioner Acute Care; ATTEND Nurse Practitioner Acute Care
DX: A04.9 Bacterial intestinal infection, unspecified (principal); N20.0 Calculus of kidney; F32.A Depression, unspecified; Z87.898 Personal history of other specified conditions; E86.0 Dehydration; D72.829 Elevated white blood cell count, unspecified
CPT/HCPCS: 36415; 80048-TC; 80076-TC; 83690-TC; 83735-TC; 84100-TC; 84703-TC; 85025-TC; A4216; A4223; G0378; J1200; J1956; J2270; J2405; J2470; J3475; J7030

== ENCOUNTER 2024-10-21 21:39 | Emergency (ER) | payer OTHER ==
[~2024-10-21] VITALS: Ht 157.5 cm; Wt 63.5 kg
[~2024-10-21 21:39] MED LIST changes: +ALPR0.25 PO; -AMOX-430 PO; -CEPH500C2 PO; +CIPR500T5 PO; -IBUP-1955 PO; -IBUP-1957 PO; -NITR100C6 PO; -OXYC-128 PO; -PHEN-704 PO; -PHEN-705 PO
[2024-10-21] MEDS ORDERED: ONDANSETRON HCL/PF 4 MG/2 ML VIAL ONE (22:28)
[2024-10-21] MEDS ORDERED: KETOROLAC TROMETHAMINE INJ 30 MG/ML VIAL ONE (22:28)
[2024-10-21] MEDS: ONDANSETRON HCL/PF - ER 4 MG/2 ML VIAL IV ONE (22:30)
[2024-10-21] MEDS: KETOROLAC TROMETHAMINE INJ 30 MG/ML VIAL IV ONE (22:30)
[2024-10-21 22:33] LABS: APPEARANCE,URINE CLEAR (CLEAR); BILIRUBIN,URINE NEGATIVE (NEGATIVE); BLOOD, URINE NEGATIVE Ery/uL (NEGATIVE); COLOR,URINE YELLOW (YELLOW); KETONES,URINE NEGATIVE (NEGATIVE); LEUKOCYTE ESTERASE ,URINE NEGATIVE (NEGATIVE); NITRITE, URINE NEGATIVE (NEGATIVE); PROTEIN,URINE NEGATIVE (NEGATIVE); UGLUCOSE NEGATIVE (NEGATIVE); UROBILINOGEN,URINE 0.2 EU/dL (0.2)
[2024-10-21] MEDS: IV NS 0.9% 1,000 ML IV ONE (22:37)
[2024-10-21 22:49] LABS: BASOPHILS # (AUTO) 0.2 K/uL (0.0-0.2); BASOPHILS % (AUTO) 1.3 % (0.0-2.0); EOSINOPHILS # (AUTO) 0.1 K/uL (0.0-0.7); EOSINOPHILS % (AUTO) 0.6 % (0.0-6.0); HEMATOCRIT 39 % (33-45); HEMOGLOBIN 12.8 g/dL (11.5-14.8); LYMPHOCYTES # (AUTO) 1.9 K/uL (0.8-4.8); LYMPHOCYTES % (AUTO) 15.8 % (20.0-44.0); MEAN CORPUSCULAR HEMOGLOBIN 31 PG (26.0-33.0); MEAN CORPUSCULAR HGB CONC 33 g/dl (31.0-36.0); MEAN CORPUSCULAR VOLUME 94 fL (82-100); MONOCYTES # (AUTO) 0.6 K/uL (0.1-1.30); MONOCYTES % (AUTO) 4.9 % (2.0-12.0); NEUTROPHILS # (AUTO) 9.5 K/uL (1.8-8.9); NEUTROPHILS % (AUTO) 77.4 % (43.0-81.0); PLATELET COUNT (AUTO) 385 K/uL (150-450); RED BLOOD CELL COUNT(AUTO) 4.13 MIL/uL (4.0-5.2); RED CELL DISTRIBUTION WIDTH 13.8 % (11.5-15.0); WHITE BLOOD COUNT (AUTO) 12.2 K/uL (4.3-11.0)
[2024-10-21 23:01] LABS: PREGNANCY TEST URINE QUAL NEGATIVE (NEGATIVE)
[2024-10-21 23:07] LABS: CALCIUM, SERUM 9.4 mg/dL (8.5-10.1); CARBON DIOXIDE 27 mmol/L (21-32); CHLORIDE 105 mmol/L (98-107); CREATININE 0.7 mg/dL (0.6-1.3); GLUCOSE 95 mg/dL (74-106); POTASSIUM 4.2 mmol/L (3.5-5.1); SODIUM SERUM 138 mmol/L (136-145); UREA NITROGEN, BLOOD 11 mg/dL (7-18)
[2024-10-21 23:17] LABS: ALANINE AMINOTRANSFERASE 16 U/L (12-78); ALBUMIN 3.9 g/dL (3.4-5.0); ALCOHOL, BLOOD < 3 mg/dL (0-10); ALKALINE PHOSPHATASE 67 U/L (46-116); ASPARTATE AMINOTRANSFERASE 8 U/L (15-37); BILIRUBIN,TOTAL 0.3 mg/dL (0.2-1.0); LIPASE 20 U/L (16-77); TOTAL PROTEIN, SERUM 7.3 g/dL (6.4-8.2)
[2024-10-21 23:45] LABS: AMPHETAMINE, URINE NEGATIVE (NEGATIVE); BARBITURATE, URINE NEGATIVE (NEGATIVE); BENZODIAZEPINE, URINE NEGATIVE (NEGATIVE); COCCAINE, URINE NEGATIVE (NEGATIVE); OPIATE, URINE NEGATIVE (NEGATIVE); PHENCYCLIDINE SCREEN,URINE NEGATIVE (NEGATIVE)
[2024-10-21 23:49] LABS: CANNABINOID, URINE POSITIVE (NEGATIVE)
[2024-10-22] MEDS ORDERED: PANT20TA2 PO (02:49)
[2024-10-22] MEDS ORDERED: ONDA4TAB5 PO (02:49)
[2024-10-22 03:14] VITALS: BP 95/75; TEMP 99.1; O2SAT 98
== END 2024-10-22 03:14 | disposition home or self-care (01) ==
LOC: ER 21:39
DX: R10.32 Left lower quadrant pain (principal); R11.2 Nausea with vomiting, unspecified; Z87.442 Personal history of urinary calculi; Z79.899 Other long term (current) drug therapy
CPT/HCPCS: 99285; 96374; 96361; 96375; 74176; 85025; 83690; 84703; 81003; 36415; 80053; 80320; 80307; J1885; J2405 ×2; G0480; J7030